=== PATIENT | male | born 1980 | race Two or more races ===

== ENCOUNTER 2018-11-10 16:36 | Emergency (ER) | payer MEDICAID ==
[~2018-11-10] VITALS: Ht 188 cm; Wt 112.4 kg
--- NOTE | 2018-11-10 17:36 | NUR ---
NO ANSWER FROM TRIAGE
--- NOTE | 2018-11-10 17:48 | NUR ---
NO ASNWER FROM TRIAGE
[2018-11-10 17:49] VITALS: BP 148/92
--- NOTE | 2018-11-10 17:52 | NUR ---
PT REQUEST TO LEAVE FROM TRIAGE. REFUSES TO STAY AT THIS POINT BECAUSE NEEDS TO GO TO WORK
== END 2018-11-10 17:55 | disposition left against medical advice (07) ==
LOC: ED 17:49
DX: H92.02 Otalgia, left ear (principal)
CPT/HCPCS: 99281

== ENCOUNTER 2018-12-13 17:42 | Emergency (ER) | payer MEDICAID, OTHER ==
[~2018-12-13] VITALS: Ht 185.4 cm; Wt 110.0 kg
[2018-12-13 17:43] VITALS: BP 147/87
[2018-12-13] MEDS ORDERED: LIDOCAINE-MPF 1%, 5ML ONE (17:51)
[2018-12-13] MEDS ORDERED: LIDOCAINE 2% 100MG/5ML SYRINGE ONE (17:51)
[2018-12-13] MEDS ORDERED: DIPH,PERTUSS(ACELL),TET VAC/PF 0.5 ML IM-VACC ONE ×2 (17:59→18:00)
[2018-12-13] MEDS ORDERED: LIDOCAINE 2%, 20ML SQ ONE (18:00)
--- NOTE | 2018-12-13 18:02 | NUR ---
PT REFUSED TETNUS INJECTION. PT STATED HE RECEIVED ONE 2 YEARS AGO.
[2018-12-13] MEDS ORDERED: BACITRACIN ZINC OINT 500U/GM, 0.9 GM ONE (19:02)
--- NOTE | 2018-12-13 19:18 | NUR ---
Patient/Caregiver given discharge instructions and they have confirmed that they understand the instructions. Patient ambulatory with steady gait.
== END 2018-12-13 19:19 | disposition home or self-care (01) ==
LOC: ED 17:56
DX: S61.012A Laceration without foreign body of left thumb without damage to nail, initial encounter (principal); W45.8XXA Other foreign body or object entering through skin, initial encounter; Y93.89 Activity, other specified; Y92.009 Unspecified place in unspecified non-institutional (private) residence as the place of occurrence of the external cause; Y99.8 Other external cause status
CPT/HCPCS: 12001; 99283; J3490

== ENCOUNTER 2019-01-21 01:20 | Emergency (ER) | payer MEDICAID, OTHER ==
[~2019-01-21] VITALS: Ht 188 cm; Wt 112.7 kg
[2019-01-21 01:22] VITALS: BP 136/82
== END 2019-01-21 02:03 | disposition home or self-care (01) ==
LOC: ED 01:54
DX: L03.011 Cellulitis of right finger (principal); W45.8XXA Other foreign body or object entering through skin, initial encounter; Y93.89 Activity, other specified; Y92.69 Other specified industrial and construction area as the place of occurrence of the external cause; Y99.0 Civilian activity done for income or pay
CPT/HCPCS: 99283